=== PATIENT | male | born 1965 | race Two or more races ===

== ENCOUNTER 2020-04-12 01:59 | Emergency (ER) | payer BC, OTHER ==
[~2020-04-12] VITALS: Ht 177.8 cm; Wt 87.0 kg
[~2020-04-12 01:59] MED LIST: INSU100I18 SQ-INSULIN; INSU100I28 SQ-INSULIN; LEVO50TA5 PO; METF500T PO
--- NOTE | 2020-04-12 02:43 | NUR ---
PT TO ROOM FROM LOBBY
--- NOTE | 2020-04-12 02:44 | NUR ---
INITIAL PT CONTACT. PT PRESENTS TO ED C/O SOB AND LOW O2 ON HOME PULSE OX + COVID TEST YESTERDAY. PT SITTING UPRIGHT ON GURNEY, NAD, VSS. PT DENIES ANY NEEDS AT THIS TIME. ERP AT BEDSIDE. CALL LIGHT WITHIN REACH.
[2020-04-12 03:25] LABS: BASOPHILS % (AUTO) 0 % (0-1); EOSINOPHILS % (AUTO) 0 % (1-7); LYMPHOCYTES % (AUTO) 12 % (22-44); MD NO; MEAN CORPUSCULAR HEMOGLOBIN 29.5 pg (27.5-34.5); MEAN CORPUSCULAR HGB CONC 34.5 g/dL (33.2-36.2); MEAN PLATELET VOLUME 8.8 fL (7.4-10.4); MONOCYTES % (AUTO) 7 % (2-9); NEUTROPHILS % (AUTO) 80 % (42-75); PLATELET COUNT 234 x10^3/uL (130-400); RED BLOOD COUNT 4.97 x10^6/uL (4.38-5.82); RED CELL DISTRIBUTION WIDTH 13.3 % (9.4-14.8)
[2020-04-12 03:33] LABS: ALANINE AMINOTRANSFERASE 25 U/L (12-78); ANION GAP 8 mmol/L (5-15); CALCIUM 8.5 mg/dL (8.5-10.1); CHLORIDE 104 mmol/L (98-107); CREATININE 1.03 mg/dL (0.7-1.3)
[2020-04-12 03:35] LABS: ALKALINE PHOSPHATASE 108 U/L (45-117); BILIRUBIN,TOTAL 0.4 mg/dL (0.2-1.0); TOTAL PROTEIN 7.2 g/dL (6.4-8.2)
--- NOTE | 2020-04-12 04:04 | NUR ---
PT SITTING UPRIGHT ON GUKRISTIN, NAD, VSS. PT DENIES ANY NEEDS AT THIS TIME. ERP AT BEDSIDE. CALL LIGHT WITHIN REACH.
[2020-04-12 04:33] VITALS: BP 106/63
== END 2020-04-12 04:34 | disposition home or self-care (01) ==
LOC: ED 03:33
DX: U07.1 COVID-19 (principal); J18.9 Pneumonia, unspecified organism; R00.8 Other abnormalities of heart beat
CPT/HCPCS: 36415; 71045; 80053; 84145; 85025; 93005; 99285